=== PATIENT | male | born 1990 | race Two or more races ===

== ENCOUNTER 2020-09-20 09:13 | Emergency (ER) | payer OTHER ==
[~2020-09-20] VITALS: Ht 180.3 cm; Wt 54.4 kg
[2020-09-20] MEDS ORDERED: PEPCID AC20 MG (09:38)
[2020-09-20] MEDS ORDERED: PREVACID30 MG PO (14:56)
[2020-09-20] MEDS ORDERED: LEVSIN/SL0.125 MG PO (14:56)
[2020-09-20] MEDS ORDERED: PEPCID AC20 MG PO (14:56)
== END 2020-09-20 15:02 | disposition home or self-care (01) ==
LOC: ER 09:13
DX: K29.70 Gastritis, unspecified, without bleeding (principal); E86.0 Dehydration